=== PATIENT | female | born 1995 | race Hispanic/Latino ===

== ENCOUNTER 2019-11-28 01:52 | Emergency (ER) | payer BC, SELFPAY ==
[2019-11-28 02:02] VITALS: BP 153/84; PULSE 74; RESP 15; TEMP 37.2; O2SAT 97; BMI 37.2
--- NOTE | 2019-11-28 02:19 | ED.ANXIETY ---
HPI - Anxiety General Chief Complaint: Anxiety Stated Complaint: uneasy/anxiety/heart palpitations no pain Time Seen by Provider: 11/28/19 01:58 Source: patient Mode of arrival: Ambulatory Limitations: no limitations History of Present Illness HPI narrative: Patient is a 23-year-old female here for anxiety issues stating that she wants to ?get checked out ?to make sure everything is okay. She states that 2 days ago she drink some coffee and had orange juice late in the day. She states that evening she woke up with heartburn. She has had heartburn in the past but has been associated with her 2 prior pregnancies. She is not currently on any medications. She is not currently having the symptoms. She states since that time she has been having some anxiety issues and some palpitations. She does not have a specific reason why she is feeling this way. She states that she has had anxiety in the past. She started having it after the of her 1st child. No thoughts of harming herself or anyone else. She is not talk with the primary doctor about this as she does not have a primary provider. Time of evaluation patient states that she feels ?fine? is not having any anxiety. Related Data Allergies Allergy/AdvReac Type Severity Reaction Status Date / Time No Known Drug Allergies Allergy Verified 11/28/19 02:01 Review of Systems Constitutional Constitutional: Denies headache(s) ENT Ears, Nose, Mouth, and Throat: Denies headache(s) Cardiovascular Cardiovascular: Denies chest pain, Reports rapid heart rate and Denies dyspnea Comments: Palpitations Respiratory Respiratory: Denies dyspnea Gastrointestinal Gastrointestinal: Denies abdominal pain, Denies nausea and Denies vomiting Integumentary/Breasts Skin/Breast: Denies rash Neurologic Neurologic: Denies behavioral changes and Denies headache(s) Psychiatric Psychiatric: Reports anxiety, Denies behavioral changes, Denies homicidal ideation and Denies suicidal ideation Patient History Medical History Anxiety (Acute) Gastroesophageal reflux disease (Acute) Social History Smoking Status: Never smoker Smoking Status: Never smoker Substance Use Type: does not use Exam Initial Vital Signs Initial Vital Signs: Vital Signs Temperature 98.9 F 11/28/19 02:02 Pulse Rate 74 11/28/19 02:02 Respiratory Rate 15 08/28/20 02:02 Blood Pressure 153/84 H 11/28/19 02:02 Pulse Oximetry 97 11/28/19 02:02 Const General: cooperative and comfortable Limitations: mental status not altered HENMT Head: normal to inspection and normocephalic Resp Effort & Inspection: normal respiratory effort Auscultation: clear to auscultation bilaterally Cardio Rate: regular rate Rhythm: regular rhythm Skin Lesions: no lesions Rashes: no rashes Neuro General: patient alert, patient awake and patient oriented x3 Cognition: normal cognition Speech: speech normal Gait: normal gait Extrem General: normal to inspection and capillary refill normal Psych Appearance: grossly normal and well kempt Speech and Movement: not agitated and not restless Mood: not anxious and No angry Affect: normal affect Thought Process: normal Thought Content: suicidality Course Orders Ordered: ED Orders 11/28/19 02:00 EKG-12 Lead Stat Vital Signs Vital signs: Vital Signs - 8 hr 11/28/19 02:02 Temperature 98.9 F Pulse Rate 74 Respiratory Rate 15 Blood Pressure 153/84 H Pulse Oximetry 97 MDM - Anxiety ECG Data Attestation: I personally reviewed and interpreted this ECG as follows: Prior ECG tracings: not available for review Interpretation: Sinus rhythm Ventricular rate is 67 Sinus arrhythmia Normal QRS Normal QTC No ST T wave changes MDM Narrative Medical decision making narrative: Not suicidal. Suspect that her reflux disease was flared up by drinking a cough in the orange she is shortly before going to bed. We did discuss the use of [id number] antacids. Her EKG is unremarkable. She is currently not having any anxiety. We did discuss potentially starting her on a as needed medicine which she declined. She was given information for the health patient resource coordinator here at the [facility] to help establish a primary provider I feel we can hold on further workup for now. She was given return precautions. She expressed understanding and agreement. Discharge Plan Departure Patient Disposition: Home Clinical Impression: Anxiety, Heart palpitations Instructions: DI for Anxiety -- Adult Activity Restrictions/Additional Instructions: Recommend that you contact the health patient resource coordinator here at the [facility] at [phone]. This individual can help you establish a primary provider. Also recommend that you start taking an [id number] antacids such as Tums or Maalox. Return to the emergency department for any new or worsening symptoms
== END 2019-11-28 02:27 | disposition home or self-care (01) ==
PROVIDERS: Emergency Provider Emergency Medicine
DX: F41.9 Anxiety disorder, unspecified (principal); R00.2 Palpitations
CPT/HCPCS: 93005; 99281; 99283

== ENCOUNTER 2019-12-02 22:23 | Emergency (ER) | payer BC, SELFPAY ==
[2019-12-02 22:34] VITALS: BP 148/82; PULSE 68; RESP 20; TEMP 37.1; O2SAT 100
--- NOTE | 2019-12-02 22:42 | ED_ITS ---
HPI - General Adult General Chief complaint: Dizziness Stated complaint: lightheaded Time Seen by Provider: 12/02/19 22:25 Source: patient Mode of arrival: Ambulatory Limitations: no limitations History of Present Illness HPI narrative: 23-year-old female here for evaluation of lightheadedness. Patient states that the symptoms 1st started about actually 24 hours ago. She states it was a somewhat gradual onset did reach its maximal intensity within approximately 30 minutes. She described it as a unsteadiness. It was not a room spinning sensation. She had some nausea but no vomiting. No other associated symptoms to include chest pain or lightheadedness. She did not fall. She was able to go about her evening activities like getting her children ready for bed. She stated that she then went to sleep herself. When she woke up this morning she felt normal. Was normal throughout the day. And then this evening similar symptoms happened. Again gradual onset. No other associated symptoms. She stated that last night and tonight symptoms lasted less than 2 hours. The time of my evaluation patient was asymptomatic. I did evaluate her here in the emergency department a couple days ago for unrelated symptoms. She was able to schedule an appointment with her primary doctor purchase scheduled for later this month. She called them back today to see if they can move that appointment up and she is scheduled to see a nurse practitioner tomorrow. Related Data Allergies Allergy/AdvReac Type Severity Reaction Status Date / Time No Known Drug Allergies Allergy Verified 11/28/19 02:01 Review of Systems Constitutional Constitutional: Denies fever(s) and Denies headache(s) Eyes Eyes: Denies blurry vision and Denies change in vision ENT Ears, Nose, Mouth, and Throat: Denies vertigo, Reports dizziness, Denies headache(s), Denies sinus pain and Denies sore throat Cardiovascular Cardiovascular: Denies chest pain, Reports lightheadedness and Denies dyspnea Respiratory Respiratory: Denies cough and Denies dyspnea Gastrointestinal Gastrointestinal: Denies abdominal pain Genitourinary Genitourinary: Denies dysuria Genitourinary: Denies dysuria Musculoskeletal Musculoskeletal: Denies arthralgias and Denies myalgias Integumentary/Breasts Skin/Breast: Denies lesions and Denies rash Neurologic Neurologic: Denies behavioral changes, Denies vertigo, Reports dizziness and Denies headache(s) Psychiatric Psychiatric: Denies behavioral changes Hematologic/Lymphatic Hematologic/Lymphatic: Denies easy bleeding and Denies easy bruising Allergic/Immunologic Allergic/Immunologic: Denies urticaria Patient History Medical History Anxiety (Acute) Gastroesophageal reflux disease (Acute) Social History Smoking Status: Never smoker Smoking Status: Never smoker Substance Use Type: does not use Exam Initial Vital Signs Initial Vital Signs: Vital Signs Temperature 98.7 F 12/02/19 22:34 Pulse Rate 68 12/02/19 22:34 Respiratory Rate 20 12/02/19 22:34 Blood Pressure 148/82 H 12/02/19 22:34 Pulse Oximetry 100 12/02/19 22:34 Const General: cooperative and comfortable Limitations: mental status not altered HENMT Head: normal to inspection and normocephalic Resp Effort & Inspection: normal respiratory effort Auscultation: clear to auscultation bilaterally Cardio Rate: regular rate Rhythm: regular rhythm Skin General: no rashes or lesions noted Neuro General: patient alert, patient awake and patient oriented x3 Cognition: normal cognition Speech: speech normal Gait: normal gait Motor: muscle tone normal throughout Sensory Exam: no sensory deficits noted Extrem General: normal to inspection and capillary refill normal Psych Appearance: grossly normal and well kempt Scores GCS [place] coma scale eye opening: Spontaneous Elise coma scale verbal response: Orientated Elise coma scale motor response: Obey commands [place] coma scale total score: 15 Course Orders Ordered: ED Orders 12/02/19 22:50 Complete Blood Count AUTO DIFF Stat Comprehensive Metabolic Panel Stat Lipase Stat Test Serum,Qual Stat Thyroid Stimulating Hormone Stat Vital Signs Vital signs: Vital Signs - 8 hr 12/02/19 22:34 12/02/19 23:57 Temperature 98.7 F Pulse Rate 68 68 Respiratory Rate 20 16 Blood Pressure 148/82 H 150/76 H Pulse Oximetry 100 100 Medical Decision Making Lab Data Lab results reviewed: Yes I reviewed the patient's lab results. Result diagrams: 12/02/19 22:50 12/02/19 22:50 Labs: Lab Results 12/02/19 12/02/19 12/02/19 Range/Units 22:50 22:50 22:50 WBC 9.5 (4.5-11.0) X10^3/uL RBC 5.11 (4.0-5.2) X10^6/uL Hgb 13.0 (12.0-16.0) g/dL Hct 40.0 (36-46) % MCV 78.4 L (80-100) fL MCH 25.4 L (26-34) PG MCHC 32.4 (30-36) % RDW 13.8 (11.6-14.8) % Plt Count 312 (150-400) X10^3/uL Neut % (Auto) 71.2 (50-75) % Lymph % (Auto) 23.4 L (25-40) % [place] % (Auto) 4.4 (3-14) % Eos % (Auto) 0.3 L (2-4) % Baso % (Auto) 0.7 (0-2) % Neut # (Auto) 6800 (4506-0361) /uL Lymph # (Auto) 2200 (8125-6165) /uL [place] # (Auto) 400 (0-900) /uL Eos # (Auto) 0 (0-450) /uL Baso # (Auto) 100 (0-100) /uL Sodium 137 (137-145) mmol/L Potassium 4.0 (3.4-5.1) mmol/L Chloride 101 (98-107) mmol/L Carbon Dioxide 28 (22-32) mmol/L BUN 13 (7-17) mg/dL Creatinine 0.73 (0.52-1.04) mg/dL Estimated GFR > 60.0 (>60) mL/min BUN/Creatinine Ratio 17.8 (6-22) Glucose 110 H (70-100) mg/dL Calcium 9.3 (8.4-10.2) mg/dL Total Bilirubin 0.5 (0.2-1.3) mg/dL AST 21 (14-36) IU/L ALT 23 (<35) IU/L Alkaline Phosphatase 82 (38-126) U/L Total Protein 7.4 (6.3-8.2) g/dL Albumin 4.3 (3.5-5.0) g/dL Globulin 3.1 (1.7-4.1) g/dL Albumin/Globulin Ratio 1.4 (1.0-2.8) Lipase 29 (23-300) U/L TSH 0.414 L (0.47-4.68) uIU/mL Serum , Qual (Negative) 12/02/19 Range/Units 22:50 WBC (4.5-11.0) X10^3/uL RBC (4.0-5.2) X10^6/uL Hgb (12.0-16.0) g/dL Hct (36-46) % MCV (80-100) fL MCH (26-34) PG MCHC (30-36) % RDW (11.6-14.8) % Plt Count (150-400) X10^3/uL Neut % (Auto) (50-75) % Lymph % (Auto) (25-40) % [place] % (Auto) (3-14) % Eos % (Auto) (2-4) % Baso % (Auto) (0-2) % Neut # (Auto) (4309-3264) /uL Lymph # (Auto) (9229-7740) /uL [place] # (Auto) (0-900) /uL Eos # (Auto) (0-450) /uL Baso # (Auto) (0-100) /uL Sodium (137-145) mmol/L Potassium (3.4-5.1) mmol/L Chloride (98-107) mmol/L Carbon Dioxide (22-32) mmol/L BUN (7-17) mg/dL Creatinine (0.52-1.04) mg/dL Estimated GFR (>60) mL/min BUN/Creatinine Ratio (6-22) Glucose (70-100) mg/dL Calcium (8.4-10.2) mg/dL Total Bilirubin (0.2-1.3) mg/dL AST (14-36) IU/L ALT (<35) IU/L Alkaline Phosphatase (38-126) U/L Total Protein (6.3-8.2) g/dL Albumin (3.5-5.0) g/dL Globulin (1.7-4.1) g/dL Albumin/Globulin Ratio (1.0-2.8) Lipase (23-300) U/L TSH (0.47-4.68) uIU/mL Serum , Qual Negative (Negative) [facility] Narrative Medical decision making narrative: Patient is asymptomatic. Labs are relatively unremarkable. Low suspicion for CVA or TIA. Low suspicion for arrhythmia however did inform the patient that she should talk with her primary doctor about the indications for a Holter monitor. Patient is not hypoglycemic which she was concerned about. She was also concerned about anemia which is not the case with her labs. Provided reassurance the patient. I feel we can hold on further workup for now. Patient was given return precautions and follow-up instructions. She expressed understanding and agreed. Discharge Plan Departure Patient Disposition: Home Clinical Impression: Lightheadedness Discharge Date/Time: 12/02/19 23:57 Instructions: DI for Dizziness-Nonvertigo Activity Restrictions/Additional Instructions: Recommend that you keep all of your scheduled medical appointments. Continue all of your medications as directed. Return to the emergency department for any new or worsening symptoms
[2019-12-02 23:02] LABS: Add Manual Diff / Slide Review NO; Basophils Absolute Auto 100 /uL (0-100); Basophils Percent Auto 0.7 % (0-2); Eosinophils Absolute Auto 0 /uL (0-450); Eosinophils Percent Auto 0.3 % (2-4); Lymphocytes Absolute Auto 2200 /uL (1100-4500); Lymphocytes Percent Auto 23.4 % (25-40); Mean Corpuscular HGB Conc 32.4 % (30-36); Mean Corpuscular Hemoglobin 25.4 PG (26-34); Mean Corpuscular Volume 78.4 fL (80-100); Monocytes Absolute Auto 400 /uL (0-900); Monocytes Percent Auto 4.4 % (3-14); Neutrophils Absolute Auto 6800 /uL (1500-7000); Neutrophils Percent Auto 71.2 % (50-75); Platelet Count 312 X10^3/uL (150-400); Red Blood Cell Count 5.11 X10^6/uL (4.0-5.2); Red Cell Distribution Width 13.8 % (11.6-14.8); White Blood Cell Count 9.5 X10^3/uL (4.5-11.0)
[2019-12-02 23:19] LABS: Alanine Aminotransferase 23 IU/L (<35); Albumin 4.3 g/dL (3.5-5.0); Albumin Globulin Ratio 1.4 (1.0-2.8); Alkaline Phosphatase 82 U/L (38-126); Aspartate Aminotransferase 21 IU/L (14-36); BUN Creatinine Ratio 17.8 (6-22); Bilirubin Total 0.5 mg/dL (0.2-1.3); Blood Urea Nitrogen 13 mg/dL (7-17); Calcium 9.3 mg/dL (8.4-10.2); Carbon Dioxide 28 mmol/L (22-32); Chloride 101 mmol/L (98-107); Estimated Glomerular Filt Rate > 60.0 mL/min (>60); Globulin 3.1 g/dL (1.7-4.1); Glucose 110 mg/dL (70-100); HEMOLYSIS < 15 (0-50); Lipase 29 U/L (23-300); Sodium 137 mmol/L (137-145); Total Protein 7.4 g/dL (6.3-8.2)
--- NOTE | 2019-12-02 23:20 | PC.NURSE ---
Patient states approximately 1600 was running around with kids and got lightheaded. Denies LOC or being near syncope, I just felt dizzy. Patient reports symptoms now resolved. Denies chest pain or pain of any kind.
[2019-12-02 23:33] LABS: Pregnancy Test Serum,Qual Negative (Negative)
[2019-12-02 23:57] VITALS: BP 150/76; PULSE 68; RESP 16; O2SAT 100
[2019-12-03 00:06] LABS: Thyroid Stimulating Hormone 0.414 uIU/mL (0.47-4.68)
== END 2019-12-02 23:57 | disposition home or self-care (01) ==
PROVIDERS: Emergency Provider Emergency Medicine
DX: R42 Dizziness and giddiness (principal)
CPT/HCPCS: 36415; 80053; 83690; 84443; 84703; 85025; 99283

== ENCOUNTER → 2019-12-22 07:03 | Outpatient (CLI) | payer BC, SELFPAY ==
--- NOTE | 2019-12-22 07:19 | DI.ECHO.S_ITS ---
Echocardiogram Report + + :Name: JOSE REMY Study Date: 12/22/2019 Height: 63 in : :[facility] Weight: 210 lb : : Gender: Female BSA: 2.0 m2 : :: 1995 Age: 24 yrs BP: 140/78 mmHg: :Reason For Study: MURMUR : :Ordering Physician: LEEANNE, : :RAKESH PRADHAN Performed By: Aaliyah Patel : :Referring: RAKESH FALLON : + + Interpretation Summary The left ventricle is normal in size and wall thickness. The ejection fraction is estimated to be 60-65%. The right ventricle is normal in size and function. No significant valvular pathology seen. The IVC is of normal diameter and collapses greater than 50% with a sniff. This suggests a low right atrial pressure of 3 mm Hg. Procedure: A two-dimensional transthoracic echocardiogram with color flow and Doppler was performed. The study quality was technically adequate. There is no prior echocardiogram noted for this patient. The heart rate ranged between 48-67 bpm during the study. The patient was in normal sinus rhythm during the exam. Left Ventricle: The left ventricle is normal in size and wall thickness. There is no thrombus. The ejection fraction is estimated to be 60-65%. There are no focal wall motion abnormalities. Diastolic parameters suggest probable normal left ventricular diastolic function and normal filling pressures. Right Ventricle: The right ventricle is normal in size and function. Atria: The left atrium is mildly dilated. Right atrial size is normal. There is no Doppler evidence for an interatrial shunt. Mitral Valve: The mitral valve is normal in structure and function. There is trace mitral regurgitation. Aortic Valve: The aortic valve is trileaflet. The aortic valve opens well. There is no aortic valve stenosis. No aortic regurgitation is present. Tricuspid Valve: The tricuspid valve is normal in structure and function. Pulmonary artery pressures cannot be estimated because of the lack of a measurable TR jet velocity but the IVC suggests a CVP of around 3 mmHg. There is trace tricuspid regurgitation. Pulmonic Valve: The pulmonic valve leaflets are thin and pliable; valve motion is normal. There is no pulmonic valvular regurgitation. Great Vessels: The aortic root is normal size. The dimensions of the ascending aorta are normal. The IVC is of normal diameter and collapses greater than 50% with a sniff. This suggests a low right atrial pressure of 3 mm Hg. Pericardium/ Pleura There is no pericardial effusion. There is no pleural effusion. MMode/2D Measurements & Calculations LVIDd: 5.0 cm LVOT diam: 2.0 cm LVIDs: 3.1 cm Ao root diam: 2.8 cm FS: 37.4 % asc Aorta Diam: 2.9 cm EPSS: 0.57 cm Ao Arch Diam (Prox Trans): 2.7 cm IVSd: 0.90 cm LVPWd: 0.78 cm LV camarena. diameter/BSA (cm/m^2): 2.5 LV sys. diameter/BSA (cm/m^2): 1.6 LA A2 area: 20.5 cm2 RA long axis: 5.5 cm LA A4 area: 20.4 cm2 RA area: 20.0 cm2 LA length (vol): 5.2 cm RA vol: 62.5 ml LA vol: 67.6 ml RA : 31.6 ml/m2 LA vol index: 34.2 ml/m2 IVC diam: 0.97 cm RVD1 (basal): 3.8 cm TAPSE: 2.7 cm Doppler Measurements & Calculations Ao V2 max: 136.6 cm/sec LVOT Max Italo: 108.7 cm/sec Ao V2 mean: 86.3 cm/sec LV V1 max P.7 mmHg Ao max P.5 mmHg LV V1 VTI: 25.6 cm Ao mean P.5 mmHg EVELINE(I,D): 2.7 cm2 Ao V2 VTI: 30.9 cm EVELINE(V,D): 2.6 cm2 sev ratio: 0.83 EVELINE indexed to BSA (cm^2/m^2): 1.4 MV E max italo: 103.2 cm/sec PA V2 max: 74.0 cm/sec MV A max italo: 34.5 cm/sec PA V2 mean: 53.2 cm/sec MV E/A: 3.0 PA mean P.3 mmHg Med Peak E' Italo: 13.3 cm/sec PA pr(Accel): 5.4 mmHg E/E' med: 7.8 Lat Peak E' Italo: 16.5 cm/sec E/E' lat: 6.3 E/e' average: 7.0 MV dec time: 0.24 sec SV(LVOT): 84.0 ml Reading Physician:03:20 PM
[2019-12-22 09:39] LABS: Free T4, Direct Thyroxine 0.93 ng/dL (0.78-2.19)
[2019-12-22 09:53] LABS: Thyroid Stimulating Hormone 2.21 uIU/mL (0.47-4.68)
== END ==
PROVIDERS: PCP Family Medicine; Referring Provider Registered Nurse Diabetes Educator; Visit Provider Registered Nurse Diabetes Educator
DX: R01.1 Cardiac murmur, unspecified (principal); R00.2 Palpitations; R42 Dizziness and giddiness
CPT/HCPCS: 0296T; 36415; 84439; 84443; 84481; 93306

== ENCOUNTER → 2019-12-22 08:15 | Outpatient (CLI) | payer BC, SELFPAY ==
--- NOTE | 2020-01-08 10:16 | PM.CARDMON.1 ---
Facility Practice Specialist Report Referral & Results Date Patient Seen: 12/22/19 Requesting provider: Eugene Del Rosario Indication: Dizziness Duration of monitoring (days): 6 Diary information: There was 1 patient triggered event associated with sinus rhythm Data: Minimum heart rate identified was 38 beats per minute at 04:48 on 12/23/2019 Maximum overall heart rate was 153 beats per minute at 19:01 on 12/25/2019 Less than 1% of identified beats or either ventricular supraventricular ectopic in origin. Patient did have a 2.2nd run of ventricular bigeminy Impression: Essentially normal 5+ day cardiac rehabilitation specialist showing rare ventricular supraventricular events as above Clinical correlation suggested
== END ==
LOC: CAR 08:16
PROVIDERS: PCP Family Medicine; Referring Provider Registered Nurse Diabetes Educator; Visit Provider Registered Nurse Diabetes Educator
DX: R42 Dizziness and giddiness (principal)
CPT/HCPCS: 0296T; 0298T

== ENCOUNTER → 2020-02-06 09:29 | Outpatient (CLI) | payer BC, SELFPAY | PROVIDERS: PCP Family Medicine; Visit Provider Physician Assistant | DX: R30.0 Dysuria (principal) | CPT/HCPCS: 87077; 87086; 87186 ==

== ENCOUNTER 2020-11-20 19:25 | Emergency (ER) | payer BC, SELFPAY ==
[2020-11-20] VITALS (8 sets, daily range): BP systolic 148–163; BP diastolic 78–90; PULSE 61–76; RESP 18; TEMP 36.9; O2SAT 98–100; BMI 38.0
--- NOTE | 2020-11-20 20:27 | DI.US.S_ITS ---
PROCEDURE: US OB <= 14 WEEKS FETUS INDICATIONS: BLEEDING OUTSIDE/PRIOR DATING DATA: Last menstrual period (LMP): Unknown. LMP-based estimated date of delivery (JEREMIAS): Not applicable. First dating scan (date and location): 11/16/2020, [facility]. Estimated date of delivery (JEREMIAS) from first dating scan: 06/17/2021. TECHNIQUE: Real-time scanning was performed of the fetus and maternal pelvic organs, with image documentation. Endovaginal scanning was also performed to better visualize the fetus and maternal ovaries. COMPARISON: [facility], US, US OB <= 14 WEEKS FETUS, 11/16/2020, 8:28. FINDINGS: Embryo: A single live intrauterine is seen. The measured heart rate is 182 beats per minute. The crown-rump length measures 3.4 cm, corresponding to an estimated gestational age of 10 weeks 2 days. It is too early for detailed anatomic assessment. By visual inspection, the amount of amniotic fluid is within normal limits. Two areas of apparent perigestational hemorrhage can be seen, which measure 2.3 x 3.5 x 0.9 cm posterior to the gestational sac and 4.4 x 4.3 x 1.4 cm inferior to the gestational sac. Measurement variability in dating: +/- 4 weeks by LMP, +/- 7 days by mean sac diameter (use before 6 weeks gestation if crown-rump length not able to be measured), +/- 5 days by crown-rump length (up to 8 weeks 6 days gestation), +/- 7 days by crown-rump length (up to 13 weeks 6 days gestation). Maternal organs: There is a complex fluid collection seen within the right adnexal region adjacent to the ovary, which demonstrates a fishnet type echotexture. Increased vascularity can be seen within the left adnexal region. There is a simple appearing cyst that measures up to 2.9 cm. A small amount free fluid can be seen within the left adnexal region. IMPRESSION: A single live intrauterine is seen. Two areas subchorionic hemorrhage can be seen. On the right, there is likely blood products seen, potentially related to a hemorrhagic cyst. Heterotopic is possible, yet considered to be less likely. Close clinical followup, with serial beta-hCG and serial ultrasound are recommended, if clinically appropriate. A simple appearing left adnexal cyst is also seen. Note: No significant discrepancy from the preliminary report. Dictated by: Shan Navas M.D. on 11/21/2020 at 7:21 Approved by: Shan Navas M.D. on 11/21/2020 at 7:28
[2020-11-20 21:05] LABS: Add Manual Diff / Slide Review NO; Basophils Absolute Auto 100 /uL (0-100); Basophils Percent Auto 1.3 % (0-2); Eosinophils Absolute Auto 300 /uL (0-450); Hematocrit 40.3 % (36-46); Hemoglobin 13.4 g/dL (12.0-16.0); Lymphocytes Absolute Auto 2000 /uL (1100-4500); Lymphocytes Percent Auto 23.7 % (25-40); Mean Corpuscular HGB Conc 33.2 % (30-36); Mean Corpuscular Hemoglobin 26.1 PG (26-34); Mean Corpuscular Volume 78.7 fL (80-100); Monocytes Absolute Auto 500 /uL (0-900); Monocytes Percent Auto 5.2 % (3-14); Neutrophils Absolute Auto 5700 /uL (1500-7000); Neutrophils Percent Auto 66.8 % (50-75); Platelet Count 239 X10^3/uL (150-400); Red Blood Cell Count 5.13 X10^6/uL (4.0-5.2); Red Cell Distribution Width 14.1 % (11.6-14.8); White Blood Cell Count 8.6 X10^3/uL (4.5-11.0)
--- NOTE | 2020-11-20 21:06 | ED_ITS ---
HPI - General Chief complaint: Vaginal Bleeding Stated complaint: bleeding, 12 wks phys ref. cramping Time Seen by Provider: 11/20/20 20:27 Source: patient Mode of arrival: Ambulatory Limitations: no limitations History of Present Illness HPI Narrative: Patient is a 24-year-old female who is a presenting with vaginal bleeding at 11 weeks. She states she had some pretty bad cramping yesterday a today the cramping was not as bad however she had of days the restroom and there was a blood clot and a large amount of blood. She went to the bathroom here in the ED accompanied to have some bleeding. She has been nauseous throughout the so she does have Zofran she has taken and a couple days. No issues with previous pregnancies Related Data Home Medications Medication Instructions Recorded Confirmed prenthiago.vits,keli,ssd-idre-ouypz 1 tab PO DAILY 11/04/20 11/16/20 Previous Rx's Medication Instructions Recorded hydroxyzine HCl 10 mg tablet 10 mg PO TID PRN #30 tab 01/22/20 docusate sodium 100 mg tablet 100 mg PO BID PRN #180 tab 11/04/20 (Stool Softener) ondansetron 4 mg disintegrating 4 mg PO Q6H PRN #20 tab 11/04/20 tablet Allergies Allergy/AdvReac Type Severity Reaction Status Date / Time No Known Drug Allergies Allergy Verified 11/20/20 19:39 Review of Systems Review of Systems Narrative: GENERAL: Denies chills, fatigue, malaise, fever, sweats, travel HEENT: Denies sinus pain, ear pain, sore throat, difficulty swallowing, neck pain RESPIRATORY: Denies dyspnea, cough, wheezing, hemoptysis, sputum. CARDIOVASCULAR: Denies chest pain, palpitations, orthopnea, edema GASTROINTESTINAL: See HPI COMMERCIAL LENDING RELATIONSHIP MANAGER: Vaginal bleeding : Denies dysuria, frequency, incontinence, hematuria, urinary retention, flank pain. MUSCULOSKELETAL: Denies weakness, joint pain, or bony pain SKIN: No rash, no erythema, no pruritus NEUROLOGIC: Denies weakness, dizziness, headache, numbness, change in speech, confusion PSYCHIATRIC: No concerning psychosocial issues. 12 point review of systems is negative except for those stated above and HPI Exam Initial Vital Signs Initial Vital Signs: Vital Signs Pulse Rate 68 11/20/20 19:37 Pulse Oximetry 99 11/20/20 19:37 GENERAL: Alert well-appearing 24-year-old female and in no acute] distress. HEENT: Head atraumatic,EOMI, pupils reactive, face symmetric, [moist] mucous membranes CARDIOVASCULAR: Regular rate and rhythm without murmurs, rubs or gallops. RESPIRATORY: Breath sounds equal bilaterally, no wheezes rales or rhonchi. ABDOMEN: Soft, nontender. Normoactive bowel sounds all 4 quadrants. No guarding or rebound. EXTREMITIES: Normal range of motion, no clubbing or edema. Neurovascularly intact NEUROLOGICAL: Alert and oriented x4.Normal gait and speech. SKIN: Warm, dry, no laceration, no petechiae, no rashes or lesions. Course Orders Ordered: ED Orders 11/20/20 20:27 OB <= 14 weeks fetus Stat 11/20/20 20:42 Urine Culture Stat Urine Microscopic Stat 11/20/20 20:54 ABO RH Type Stat Complete Blood Count AUTO DIFF Stat Comprehensive Metabolic Panel Stat HCG Quantitative /Beta subunit Stat Vital Signs Vital signs: Vital Signs - 8 hr 11/20/20 19:37 11/20/20 19:39 11/20/20 20:00 Temperature 98.5 F Pulse Rate 68 76 63 Respiratory Rate 18 Blood Pressure 148/78 H Pulse Oximetry 99 98 99 11/20/20 20:30 11/20/20 20:48 11/20/20 21:00 Temperature Pulse Rate 61 71 66 Respiratory Rate Blood Pressure 152/86 H 151/90 H Pulse Oximetry 99 100 99 MDM - OB/Uterine Contractions Lab Data Result diagrams: 11/20/20 20:54 11/20/20 20:54 Labs: Lab Results 11/20/20 11/20/20 11/20/20 Range/Units 20:42 20:54 20:54 WBC 8.6 (4.5-11.0) X10^3/uL RBC 5.13 (4.0-5.2) X10^6/uL Hgb 13.4 (12.0-16.0) g/dL Hct 40.3 (36-46) % MCV 78.7 L (80-100) fL MCH 26.1 (26-34) PG MCHC 33.2 (30-36) % RDW 14.1 (11.6-14.8) % Plt Count 239 (150-400) X10^3/uL Neut % (Auto) 66.8 (50-75) % Lymph % (Auto) 23.7 L (25-40) % Shannon % (Auto) 5.2 (3-14) % Eos % (Auto) 3.0 (2-4) % Baso % (Auto) 1.3 (0-2) % Neut # (Auto) 5700 (9944-2870) /uL Lymph # (Auto) 2000 (0137-4321) /uL Shannon # (Auto) 500 (0-900) /uL Eos # (Auto) 300 (0-450) /uL Baso # (Auto) 100 (0-100) /uL Sodium 135 L (137-145) mmol/L Potassium 3.9 (3.4-5.1) mmol/L Chloride 103 (98-107) mmol/L Carbon Dioxide 27 (22-32) mmol/L BUN 13 (7-17) mg/dL Creatinine 0.86 (0.52-1.04) mg/dL Estimated GFR > 60.0 (>60) mL/min BUN/Creatinine Ratio 15.1 (6-22) Glucose 95 (70-100) mg/dL Calcium 9.2 (8.4-10.2) mg/dL Total Bilirubin 0.2 (0.2-1.3) mg/dL AST 19 (14-36) IU/L ALT 16 (<35) IU/L Alkaline Phosphatase 61 (38-126) U/L Total Protein 7.0 (6.3-8.2) g/dL Albumin 4.0 (3.5-5.0) g/dL Globulin 3.0 (1.7-4.1) g/dL Albumin/Globulin Ratio 1.3 (1.0-2.8) HCG, Quant 98945 mIU/mL Urine RBC >100/hpf H (0-5/HPF) Urine WBC 10-30/hpf H (0-5/HPF) Ur Squamous Epith Cells 1-5 /hpf (0-5/HPF) Ur Transition Epith Cell 1-5/hpf (0-5/HPF) Urine Bacteria Moderate (10-30) H (None) Ur Culture Indicated? Specimen cultured Blood Type 11/20/20 Range/Units 20:54 WBC (4.5-11.0) X10^3/uL RBC (4.0-5.2) X10^6/uL Hgb (12.0-16.0) g/dL Hct (36-46) % MCV (80-100) fL MCH (26-34) PG MCHC (30-36) % RDW (11.6-14.8) % Plt Count (150-400) X10^3/uL Neut % (Auto) (50-75) % Lymph % (Auto) (25-40) % Shannon % (Auto) (3-14) % Eos % (Auto) (2-4) % Baso % (Auto) (0-2) % Neut # (Auto) (7269-8482) /uL Lymph # (Auto) (7577-2786) /uL Shannon # (Auto) (0-900) /uL Eos # (Auto) (0-450) /uL Baso # (Auto) (0-100) /uL Sodium (137-145) mmol/L Potassium (3.4-5.1) mmol/L Chloride (98-107) mmol/L Carbon Dioxide (22-32) mmol/L BUN (7-17) mg/dL Creatinine (0.52-1.04) mg/dL Estimated GFR (>60) mL/min BUN/Creatinine Ratio (6-22) Glucose (70-100) mg/dL Calcium (8.4-10.2) mg/dL Total Bilirubin (0.2-1.3) mg/dL AST (14-36) IU/L ALT (<35) IU/L Alkaline Phosphatase (38-126) U/L Total Protein (6.3-8.2) g/dL Albumin (3.5-5.0) g/dL Globulin (1.7-4.1) g/dL Albumin/Globulin Ratio (1.0-2.8) HCG, Quant mIU/mL Urine RBC (0-5/HPF) Urine WBC (0-5/HPF) Ur Squamous Epith Cells (0-5/HPF) Ur Transition Epith Cell (0-5/HPF) Urine Bacteria (None) Ur Culture Indicated? Blood Type O Positive Urine Dip Bedside Urine Glucose Negative Bedside Urine Bilirubin - Negative Bedside Urine Ketone - Negative Urine Specific [place] 1.020 Bedside Urine Occult Blood +++ Bedside Urine pH 6.5 Bedside Urine Protein - Negative Bedside Urine Urobilinogen - Negative Bedside Urine Nitrite - Negative Bedside Urine Leukocytes - Negative Esterase Imaging Data US - OB: Radiologist's Impression: Preliminary report: 1. A single live intrauterine with crown-rump length measuring 3.4 cm consistent with gestational age of 10 weeks and 2 days. 2. 2 distinct hypoechoic regions adjacent to the gestational sac measuring 2.3 x 3.5 x 0.9 cm and 4.4 x 4.3 x 1.9 cm these findings are most consistent with regions of subchorionic hemorrhage. Given size recommended close interval follow-up to ensure resolution with serial beta-hCG evaluations. 3. Large anechoic cyst contained within left ovary measuring 2.9 x 3.5 x 2.0 cm. Complex fluid likely blood products contained within right adnexa MDM Narrative Medical decision making narrative: Patient is hemodynamically stable. She is Opositive no indication for RhoGAM at this time. She has had to have 2 areas of subchorionic hemorrhage, but good heart tone. Discussed with her pelvic rest close follow-up with Ob. All questions have been addressed. Patient is found have bacteria in her urine along with multiple epithelial cells. She has no leukocytes or nitrates in her urine. At this time will wait for culture before treating with antibiotics. Discharge Plan Departure Patient Disposition: Home Clinical Impression: Subchorionic hemorrhage in first trimester, Miscarriage, threatened, early p regnancy Instructions: DI for Vaginal Bleeding During Activity Restrictions/Additional Instructions: At this time baby does look healthy and appears well. You have 2 areas of bleeding around baby that should stop. At this time recommend pelvic rest, nothing in or out of the vagina. Please follow-up closely with your OB, call to schedule appointment in the next 2-3 days. Return to the emergency department if you should have increasing pain, large amounts of bleeding going through more than 1 or 2 pads or any new or worsening symptoms. Prescriptions: No Action hydroxyzine HCl 10 mg tablet 10 mg PO TID PRN (Reason: anxiety) Qty: 30 RF: 0 prenat.vits,keli,svo-japm-qgjll Tablet 1 tab PO DAILY RF: 0 ondansetron 4 mg tablet,disintegrating 4 mg PO Q6H PRN (Reason: nausea and vomiting) Qty: 20 RF: 2 docusate sodium [Stool Softener] 100 mg tablet 100 mg PO BID PRN (Reason: constipation) Qty: 180 RF: 2 Referrals: Adwoa Kraft MD [Physician] - Ji Chou DO [Primary Care Provider] -
[2020-11-20 21:23] LABS: Alanine Aminotransferase 16 IU/L (<35); Albumin Globulin Ratio 1.3 (1.0-2.8); Alkaline Phosphatase 61 U/L (38-126); Aspartate Aminotransferase 19 IU/L (14-36); BUN Creatinine Ratio 15.1 (6-22); Bilirubin Total 0.2 mg/dL (0.2-1.3); Blood Urea Nitrogen 13 mg/dL (7-17); Calcium 9.2 mg/dL (8.4-10.2); Carbon Dioxide 27 mmol/L (22-32); Chloride 103 mmol/L (98-107); Estimated Glomerular Filt Rate > 60.0 mL/min (>60); Glucose 95 mg/dL (70-100); HEMOLYSIS < 15 (0-50); Potassium 3.9 mmol/L (3.4-5.1); Sodium 135 mmol/L (137-145)
[2020-11-20 21:28] LABS: Bacteria Urine Moderate (10-30); Culture Indicated Urine Specimen Cultured; RBC Urine >100/HPF (0-5/HPF); Squamous Epithelial Cell Urine 1-5 /HPF (0-5/HPF); Transitional Epi Cells Urine 1-5/HPF (0-5/HPF); WBC Urine 10-30/HPF (0-5/HPF)
[2020-11-20 22:03] LABS: HCG Quantitative /Beta subunit 37856 mIU/mL
== END 2020-11-20 23:41 | disposition home or self-care (01) ==
PROVIDERS: Emergency Provider Emergency Medicine; PCP Family Medicine
DX: O41.8X10 Other specified disorders of amniotic fluid and membranes, first trimester, not applicable or unspecified (principal); O20.0 Threatened abortion; Z3A.11 11 weeks gestation of pregnancy
CPT/HCPCS: 36415; 76801; 76817; 80053; 81003; 81015; 84702; 85025; 86900; 86901; 87086; 99284

== ENCOUNTER → 2020-11-22 17:29 | Outpatient (CLI) | payer BC, SELFPAY ==
[2020-11-22 18:59] LABS: HCG Quantitative /Beta subunit 34569 mIU/mL
== END ==
PROVIDERS: PCP Family Medicine; Referring Provider Specialist; Visit Provider Specialist
DX: O20.0 Threatened abortion (principal); O41.8X10 Other specified disorders of amniotic fluid and membranes, first trimester, not applicable or unspecified; O46.8X1 Other antepartum hemorrhage, first trimester
CPT/HCPCS: 36415; 84702

== ENCOUNTER → 2020-12-01 12:18 | Outpatient (CLI) | payer BC, SELFPAY ==
[2020-12-01 14:11] LABS: Thyroid Stimulating Hormone 0.621 uIU/mL (0.47-4.68)
[2020-12-02 10:12] LABS: HIV 1 & 2 Ab/Ag 4th Gen Combo NEGATIVE (NEGATIVE); Hep C Virus Ab w/Reflex Quant NEGATIVE s/c (NEGATIVE)
[2020-12-02 10:45] LABS: Varicella IgG Antibody 1165 index (Immune >165)
== END ==
PROVIDERS: PCP Family Medicine; Referring Provider Specialist; Visit Provider Specialist
DX: Z34.81 Encounter for supervision of other normal pregnancy, first trimester (principal); Z36.0 Encounter for antenatal screening for chromosomal anomalies
CPT/HCPCS: 36415; 81420; 84443; 86787; 86803; 87389

== ENCOUNTER → 2021-01-05 14:55 | Outpatient (CLI) | payer BC, SELFPAY ==
[2021-01-07 18:36] LABS: AFP Value 19.6 ng/mL (.); Gest Age on Col Date 17.4 weeks (.); Gestational Age Ultrasound (.); Insulin Dep Diabetes No (.); OSBR Risk 1IN 10000 (.); Results Report (.); Test Results *Screen Negative* (.)
== END ==
PROVIDERS: PCP Family Medicine; Referring Provider Specialist; Visit Provider Specialist
DX: Z34.82 Encounter for supervision of other normal pregnancy, second trimester (principal); R31.9 Hematuria, unspecified; Z3A.17 17 weeks gestation of pregnancy
CPT/HCPCS: 36415; 82105; 87086

== ENCOUNTER → 2021-01-25 13:58 | Outpatient (CLI) | payer BC, SELFPAY ==
--- NOTE | 2021-01-25 13:58 | DI.US.S_ITS ---
PROCEDURE: US OB >= 14 WEEKS FETUS INDICATIONS: ANATOMY OUTSIDE/PRIOR DATING DATA: First dating scan (date and location): 11/16/2020 . Estimated date of delivery (JEREMIAS) from first dating scan: 06/17/2021 . TECHNIQUE: Real-time scanning was performed of the fetus, with image documentation and biometric measurements. Endovaginal scanning: No COMPARISON: [facility], , OB >= 14 WEEKS FETUS, 12/01/2020, 12:04. FINDINGS: General: A single living intrauterine gestation is present. Presentation: Breech. Placenta: Placental position is posterior , without previa. Amniotic fluid index: 16.5 cm, normal range is 5-24 cm. heart rate: 149 beats per minute. Maternal cervical canal: 4.4 cm long. Normal lower limit is 2.5 cm. biometrics: Biparietal diameter: 20 weeks 4 days Head circumference: 20 weeks 3 days Abdominal circumference: 21 weeks 5 days Femur length: 20 weeks 1 day Estimated gestational age from initial scan: 19 weeks 4 days Composite gestational age from present scan: 20 weeks 5 days Estimated weight and percentile: 380 g; 98th percentile. Measurement variability for biometric dating: +/- 7 days from 14 weeks to 15 weeks 6 days gestation, +/- 10 days from 16 weeks to 21 weeks 6 days gestation, +/- 2 weeks from 22 weeks to 27 weeks 6 days gestation, +/- 3 weeks for 28 weeks gestation or later. weight reference: 4500 g or EFW >90/95% is considered macrosomia or large for gestational age. EFW <10% is small for gestational age. EFW 5% or less is considered intra-uterine growth restriction. Anatomic survey: Neuro: Ventricles are non-dilated at less than 10 mm. Cisterna magna is normal at 3-11 mm. Cerebellum is normal in size and morphology. Nuchal skin fold: Normal at less than 6 mm between 14-21 weeks gestational age. Face: Nose and lips, facial profile are normal. Spine: No evidence for spina bifida. Heart: 4-chambered heart is present, with normal ventricular outflow tracts. Diaphragm: Diaphragm is intact. Stomach: Left-sided stomach is present. Kidneys: No hydronephrosis. Normal is less than 5 mm in 2nd trimester, less than 7 mm in 3rd trimester. Cord: 3-vessel cord has orthotopic insertion. Bladder: Normal in size. Extremities: All 4 extremities identified. IMPRESSION: 1. Single living IUP redemonstrated and interval growth is greater than expected with estimated weight at the 98th percentile for age. 2. Normal anatomic survey. Dictated by: Alexi Lim [facility] Interpreted: Radha Fernandes MD on 01/25/2021 at 15:05 Transcribed by: GARRISON on 01/25/2021 at 15:07 Approved by: Radha Fernandes M.D. on 01/25/2021 at 16:15
== END ==
PROVIDERS: PCP Family Medicine; Referring Provider Specialist; Visit Provider Specialist
DX: Z34.82 Encounter for supervision of other normal pregnancy, second trimester (principal); Z3A.20 20 weeks gestation of pregnancy
CPT/HCPCS: 76811

== ENCOUNTER → 2021-03-18 08:37 | Outpatient (CLI) | payer BC, SELFPAY ==
[2021-03-18 10:39] LABS: Hematocrit 33.6 % (36-46); Hemoglobin 11.3 g/dL (12.0-16.0)
[2021-03-18 11:44] LABS: GTT (PREG) 1 Hour PP 50gm Dose 176 mg/dL (76-139)
== END ==
PROVIDERS: PCP Family Medicine; Referring Provider Specialist; Visit Provider Specialist
DX: Z34.82 Encounter for supervision of other normal pregnancy, second trimester (principal); Z3A.26 26 weeks gestation of pregnancy
CPT/HCPCS: 36415; 82950; 85014; 85018

== ENCOUNTER → 2021-04-18 08:07 | Outpatient (CLI) | payer BC, SELFPAY ==
[2021-04-18 09:53] LABS: Glucose Fasting Gestational 78 mg/dL (76-95)
[2021-04-18 11:51] LABS: Glucose Tol Interp,Gestational INTERPRETATION
[2021-04-18 12:54] LABS: Glucose 1 Hour Gest 120 mg/dL (76-180)
[2021-04-18 13:01] LABS: Glucose 2 Hour Gest 101 mg/dL (76-155)
[2021-04-18 13:33] LABS: Glucose 3 Hour Gest 109 mg/dL (76-140)
== END ==
PROVIDERS: PCP Family Medicine; Referring Provider Specialist; Visit Provider Specialist
DX: O99.810 Abnormal glucose complicating pregnancy (principal)
CPT/HCPCS: 36415; 82951; 82952

== ENCOUNTER → 2021-05-17 11:56 | Outpatient (CLI) | payer BC, SELFPAY ==
[2021-05-18 17:00] LABS: Strep Grp B PCR NEG for Grp B Strep
== END ==
PROVIDERS: PCP Family Medicine; Visit Provider Specialist
DX: Z36.85 Encounter for antenatal screening for Streptococcus B (principal); Z3A.36 36 weeks gestation of pregnancy
CPT/HCPCS: 87086; 87653

== ENCOUNTER 2021-06-07 09:14 | Observation (INO) | payer BC, SELFPAY ==
[2021-06-07] MEDS: LACTATED RINGERS 1,000 ML 100 ML IV (10:53)
[2021-06-07 11:09] LABS: Add Manual Diff / Slide Review NO; Basophils Absolute Auto 0 /uL (0-100); Basophils Percent Auto 0.7 % (0-2); Eosinophils Absolute Auto 100 /uL (0-450); Hematocrit 34.9 % (36-46); Hemoglobin 11.2 g/dL (12.0-16.0); Lymphocytes Absolute Auto 1700 /uL (1100-4500); Mean Corpuscular Hemoglobin 23.2 PG (26-34); Mean Corpuscular Volume 72.7 fL (80-100); Monocytes Absolute Auto 500 /uL (0-900); Monocytes Percent Auto 7.1 % (3-14); Neutrophils Absolute Auto 4200 /uL (1500-7000); Neutrophils Percent Auto 65.2 % (50-75); Platelet Count 224 X10^3/uL (150-400); Red Cell Distribution Width 15.5 % (11.6-14.8); White Blood Cell Count 6.4 X10^3/uL (4.5-11.0)
[2021-06-07 11:22] LABS: Alanine Aminotransferase 19 IU/L (<35); Albumin 3.5 g/dL (3.5-5.0); Alkaline Phosphatase 174 U/L (38-126); Aspartate Aminotransferase 26 IU/L (14-36); BUN Creatinine Ratio 18.8 (6-22); Bilirubin Total 0.4 mg/dL (0.2-1.3); Blood Urea Nitrogen 12 mg/dL (7-17); Calcium 8.4 mg/dL (8.4-10.2); Carbon Dioxide 23 mmol/L (22-32); Chloride 106 mmol/L (98-107); Estimated Glomerular Filt Rate > 60.0 mL/min (>60); Globulin 3.5 g/dL (1.7-4.1); Glucose 93 mg/dL (70-100); HEMOLYSIS < 15 (0-50); Potassium 3.9 mmol/L (3.4-5.1); Sodium 133 mmol/L (137-145); Uric Acid 4.2 mg/dL (2.5-6.2)
[2021-06-07 11:38] LABS: Creatinine Urine Random 211.4 mg/dL; Protein (Total) Urine Random 24 mg/dL (0-12); Protein Creatinine Ratio Urine 0.11 GRAM/24H
--- NOTE | 2021-06-07 13:17 | PM.OBTRLD ---
Visit Information Visit Information Date of evaluation: 06/07/21 Primary OB Provider: Adwoa Kraft On-call OB Provider: Meño Bowens Reason for Evaluation: Yes non-stress test and Yes other Comments/Additional reasons for admission: Patient is 25 yo JEREMIAS 06/12/2021 @ 39+2 weeks EGA sent to [facility] for observation due to labile BP's in office and 1+ dip UA for protein. Patient wishes to be induced due to persistent maternal discomfort Vital Signs Vital Signs: BP's per OBIX; All BP's in the normal or mild HTN range [facility] Medical History (Updated 06/07/21 @ 09:21 by Meño Bowens MD) Anxiety (~11/2019) Elevated blood pressure reading in office with white coat syndrome, without diagnosis of hypertension (~2015) Gastroesophageal reflux disease (~11/2019) Generalized anxiety disorder with panic attacks (~02/2020) anxiety (~2015) Systolic murmur (~01/2020) UTI (urinary tract infection) (~02/2020) Surgical History (Updated 11/04/20 @ 12:27 by Kellen Yee RN) History of removal of skin mole Family History (Updated 11/04/20 @ 12:32 by Kellen Yee RN) Father Hyperlipidemia Mother Hyperlipidemia Hypertension Grandmother Cancer Grandfather Cancer Grandmother No problems noted. Grandfather No problems noted. Social History marital status: number of children: 2 household members: spouse, family ([id number], and her brother. ) and children lives independently: Yes caregiver/support person: No housing: house (3 level [facility]. 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 ) current occupational exposures/hazards: No kimberley/jewish: Religion special kimberley needs: No seatbelt use: always helmet use: Yes working smoke detector in home: Yes fire extinguisher in home: Yes carbon monox detector in home: Yes firearms in home: No do you feel safe at home: Yes Smoking Status: Never smoker second hand exposure: No alcohol intake: never substance use type: does not use during the past year weight has: remained stable well-balanced diet: daily or most days daily servings fruits/ve-4 (2 per day now, as she is nauseous. Usually more vegetables.) caffeine: No Type(s) of exercise: walking and normal ROM and activity frequency: daily duration: 30-45 minutes/day Review of Systems Review of Systems Narrative: Problem-specific ROS positives included in HPI. Exam Const General: cooperative and No acute distress Nutritional Appearance: overweight Orientation: alert and oriented x3 HENMT Head: normal to inspection Face and sinus: face symmetric Eyes General: appearance normal, both eyes and all related structures Neck Neck: normal visual inspection Resp Effort & Inspection: normal respiratory effort and able to speak in complete sentences Manual OB Exam: dilated 2, effaced 75%, station high and other (Soft, intermediate position) Uterus Location (Fundal Height): 40 Presentation: vertex Skin General: no rashes or lesions noted Extrem General: edema (Trace) Psych Appearance: grossly normal Mental Status: mental status grossly normal Speech and Movement: speech and movement normal Mood: congruent mood Affect: normal affect Attitude: cooperative Thought Process: normal Thought Content: normal Judgment: judgment good Objective Labs Result Diagrams: 06/07/21 Unknown 06/07/21 Unknown Labs: Laboratory Results - last 24 hr 06/07/21 06/07/21 06/07/21 Unknown Unknown Unknown WBC 6.4 RBC 4.80 Hgb 11.2 L Hct 34.9 L MCV 72.7 L MCH 23.2 L MCHC 32.0 RDW 15.5 H Plt Count 224 Neut % (Auto) 65.2 Lymph % (Auto) 26.0 [place] % (Auto) 7.1 Eos % (Auto) 1.0 L Baso % (Auto) 0.7 Neut # (Auto) 4200 Lymph # (Auto) 1700 [place] # (Auto) 500 Eos # (Auto) 100 Baso # (Auto) 0 Sodium 133 L Potassium 3.9 Chloride 106 Carbon Dioxide 23 BUN 12 Creatinine 0.64 Estimated GFR > 60.0 BUN/Creatinine Ratio 18.8 Glucose 93 Uric Acid 4.2 Calcium 8.4 Total Bilirubin 0.4 AST 26 ALT 19 Alkaline Phosphatase 174 H Total Protein 7.0 Albumin 3.5 Globulin 3.5 Albumin/Globulin Ratio 1.0 U Random Total Protein 24 H Urine Creatinine 211.4 Protein/Creatinin Ratio 0.11 Evaluation Evaluation Baseline heart rate: 140 Variability: Average (6-10) monitor accelerations: Present Monitor Decelerations: Absent Category of Tracing: Reactive Status: Category l Cervical dilation (cm): 2 Cervical effacement (%): 75 station: -4 Diagnosis, Plan/Disposition Plan/Disposition Plan: ASSESSMENT 1. Intrauterine gestation, manuel, vertex, 39+2 weeks EGA 2. Gestational hypertension w/o severe features 3. Maternal discomfort, third trimester PLAN 1. Options discussed and the patient would like to be induced as soon as feasible 2. Will admit this evening for cervical ripening and initiation of pitocin AM 06/08/2021 if cervix is more favorable at that time. OB Disposition: home
== END 2021-06-07 13:18 | disposition home or self-care (01) ==
PROVIDERS: Admitting Provider Obstetrics & Gynecology; PCP Family Medicine; Referring Provider Family Medicine; Visit Provider Family Medicine
DX: O13.3 Gestational [pregnancy-induced] hypertension without significant proteinuria, third trimester (principal); O26.893 Other specified pregnancy related conditions, third trimester; Z3A.39 39 weeks gestation of pregnancy
CPT/HCPCS: 36415; 59025; 59050; 80053; 82570; 84156; 84550; 85025; 96360; G0378; G0379

== ENCOUNTER 2021-06-08 07:09 | Inpatient (IN) | payer BC, SELFPAY ==
--- NOTE | 2021-06-08 08:08 | PM.OBHP.1 ---
OB HPI Date/Time Date of admission: 06/08/21 Date Patient Seen: 06/08/21 Time Patient Seen: 07:45 History of Present Condition Chief complaint: LABOR : 3 Para: 2 Estimated Date of Delivery: 06/12/21 Estimated Gestational Age (weeks): 39+3 Narrative: Jaziel James Cherry is a 25 year old admitted for ripening/induction at 39+3 due to labile BP and maternal discomfort. She has had 2 spontaneous vaginal births of infants weighing less than 7 lb but this infant is larger with the most recent estimated weight on 06/07/2021 of 8 lb 5 oz.. In addition her MARLENY is 24.7 cm. Indications Indication for induction OB: gestational HTN/pre-eclampsia History of Present care: good care Dating criteria: LMP confirmed by 1st trimester US Ultrasounds: normal 1st trimester US and normal mid trimester US Obstetrical complications: gestational hypertension (Non-severe) Medical complications: none Preadmission Labs Blood type: O (+) positive -: Antibody screen: unknown, GBS status: negative, HBsAG: negative, HIV: negative and RPR/VDLR: negative -: Chlamydia screen: not detected and Gonorrhea screen: not detected -: Rubella: immune and Varicella: immune HCAB: negative PAP: Normal Quad screen: Normal 1 hr GTT: 176 3 hr GTT: 1 hr (120), 2 hr (101) and 3 hr (109) Fasting blood glucose: 78 Prior (ies) History: x 2 Evaluation Evaluation Baseline heart rate: 140 Variability: Moderate (11-25) monitor accelerations: Present Monitor Decelerations: Absent Category of Tracing: Reactive Status: Category l Dilation (cm): 2 Effacement (%): 75 Dilation: 1-2 cm Effacement: 60-70% station: -4 Position of cervix: mid Consistency: soft Shaw [facility]: 6 [facility] Medical History Anxiety (~11/2019) Elevated blood pressure reading in office with white coat syndrome, without diagnosis of hypertension (~2015) Gastroesophageal reflux disease (~11/2019) Generalized anxiety disorder with panic attacks (~02/2020) anxiety (~2015) Systolic murmur (~01/2020) UTI (urinary tract infection) (~02/2020) Surgical History History of removal of skin mole Family History Father Hyperlipidemia Mother Hyperlipidemia Hypertension Grandmother Cancer Grandfather Cancer Grandmother No problems noted. Grandfather No problems noted. Social History marital status: number of children: 2 household members: spouse, family ([id number], and her brother. ) and children lives independently: Yes caregiver/support person: No housing: house (3 level [facility]. 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 ) current occupational exposures/hazards: No kimberley/spiritism: Sabianist special kimberley needs: No seatbelt use: always helmet use: Yes working smoke detector in home: Yes fire extinguisher in home: Yes carbon monox detector in home: Yes firearms in home: No do you feel safe at home: Yes Smoking Status: Never smoker second hand exposure: No alcohol intake: never substance use type: does not use during the past year weight has: remained stable well-balanced diet: daily or most days daily servings fruits/ve-4 (2 per day now, as she is nauseous. Usually more vegetables.) caffeine: No Type(s) of exercise: walking and normal ROM and activity frequency: daily duration: 30-45 minutes/day Meds Home Medications and Allergies Home Medications Medication Instructions Recorded Confirmed Type prenat.vits,keli,zmw-yhzd-cufmq 1 tab PO DAILY 11/04/20 06/07/21 History Allergies Allergy/AdvReac Type Severity Reaction Status Date / Time No Known Drug Allergies Allergy Verified 06/07/21 08:17 Review of Systems Review of Systems Narrative: Problem-specific ROS positives included in HPI OB Exam HENMT Head: normal to inspection, normocephalic and atraumatic Eyes General: appearance normal, both eyes and all related structures Resp Effort & Inspection: normal respiratory effort and able to speak in complete sentences Auscultation: clear to auscultation bilaterally Cardio Rhythm: regular rhythm Heart Sounds: S1 normal, S2 normal and no murmurs Extremities Lower extremity: Yes normal to inspection Uterus Location (Fundal Height): 38 Presentation: vertex Estimated Weight (lbs): 8 Objective Labs Result Diagrams: 06/08/21 08:30 Assessment and Plan Assessment and Plan Assessment and Plan narrative: ASSESSMENT 1. Intrauterine gestation, Reyna, vertex, 39+ 3 weeks gestation 2. Gestational hypertension, non-severe 3. Maternal fatigue and discomfort PLAN 1. Admit for cervical ripening and induction 2. See admission orders
[2021-06-08 08:17] LABS: COVID19 -Nasal RAPID Negative (Negative)
[2021-06-08 08:30] VITALS: BP 131/75
[2021-06-08 08:50] LABS: Add Manual Diff / Slide Review NO; Basophils Absolute Auto 100 /uL (0-100); Basophils Percent Auto 0.7 % (0-2); Eosinophils Absolute Auto 0 /uL (0-450); Eosinophils Percent Auto 0.3 % (2-4); Hematocrit 34.4 % (36-46); Hemoglobin 11.2 g/dL (12.0-16.0); Lymphocytes Absolute Auto 1600 /uL (1100-4500); Lymphocytes Percent Auto 23.3 % (25-40); Mean Corpuscular HGB Conc 32.5 % (30-36); Mean Corpuscular Hemoglobin 23.2 PG (26-34); Mean Corpuscular Volume 71.5 fL (80-100); Monocytes Absolute Auto 400 /uL (0-900); Monocytes Percent Auto 5.5 % (3-14); Neutrophils Absolute Auto 5000 /uL (1500-7000); Neutrophils Percent Auto 70.2 % (50-75); Platelet Count 244 X10^3/uL (150-400); Red Blood Cell Count 4.81 X10^6/uL (4.0-5.2); Red Cell Distribution Width 15.5 % (11.6-14.8); White Blood Cell Count 7.1 X10^3/uL (4.5-11.0)
[2021-06-08] MEDS: LACTATED RINGERS 1,000 ML 100 ML IV ×2 (09:25→15:23)
[2021-06-08] MEDS: OXYTOCIN PREMIX 30 UNIT/500 ML PLAST..BAG 200 UNIT IV (09:25)
--- NOTE | 2021-06-08 12:38 | PM.OBPNLAB ---
Date/Time Date Patient Seen: 06/08/21 Time Patient Seen: 12:38 Pain Control Pain control: tolerating well Pelvic Exam Dilation (cm): 3 Effacement (%): 80 station: 0 Amniotic membrane status: Intact Contractions Contractions on admission: none Monitor mode: External Pitocin rate (mU/min): 7 Contraction frequency (min): 4 Contraction duration (min): 1 Contraction pattern: Irregular Contraction phase: Resting Contraction intensity: Moderate Status status: Category l Heart Rate Baseline: 145 Monitor Accelerations: Present Monitor Decelerations: Absent Monitor Variability: Moderate Assessment and Plan Assessment: induction ongoing Plan: continuous present management
[2021-06-08] MEDS: fentaNYL 250 MCG/5 ML INJ (14:57)
[2021-06-08] MEDS: FENT 2MCG/ML BUPIV 0.125% EPI 200 MCG/100 ML PLAST..BAG 12 MCG EPIDURAL (14:57)
--- NOTE | 2021-06-08 15:19 | P.PCN_ITS ---
Regional Block Pre-procedure Procedure: Continuous Lumbar Epidural for L&D Attending OB provider: Meño Bowens PMH/ROS narrative: Hx: No personal or family history of anesthesia problems. PSH/Anesthesia history narrative: previous epidural without issue Exam narrative: MP4, RRR, CTAB ASA Class: III Labs: Hct 34.4 % (36-46) L 06/08/21 08:30 Plt Count 244 X10^3/uL (150-400) 06/08/21 08:30 Medications: Current Medications Generic Name Dose Route Start Last Admin Trade Name Freq PRN Reason Stop Dose Admin Calcium Carbonate 1,000 mg 06/08/21 07:22 Calcium Carbonate 500 Mg Tab PO Q2HR PRN Dyspepsia Carboprost Tromethamine 250 mcg 06/08/21 07:22 Carboprost 250 Mcg/Ml Ampul IM Q90M PRN Bleeding Fentanyl 100 mcg 06/08/21 07:22 Fentanyl 100 Mcg/2 Ml Inj IV Q1H PRN Pain, Severe (7-10) Lactated Ringer's 1,000 mls @ 100 mls/hr 06/08/21 07:30 06/08/21 09:25 Lactated Ringers IV 100 mls/hr CONT GARETH Administration Oxytocin/Lactated Ringer's 30 unit in 500 mls @ 200 mls/hr 06/08/21 07:22 06/08/21 09:25 Oxytocin Premix IV 200 mls/hr CONT PRN Administration Bleeding Protocol Tranexamic Acid 1,000 mg/ 100 mls @ 200 mls/hr 06/08/21 07:22 Sodium Chloride IV NOW PRN Bleeding Methylergonovine Maleate 0.2 mg 06/08/21 07:22 Methylergonovine 0.2 Mg/Ml Vial IM NOW PRN Bleeding Methylergonovine Maleate 0.2 mg 06/08/21 07:22 Methylergonovine 0.2 Mg Tablet PO Q6HR PRN Heavy Bleeding Misoprostol 1,000 mcg 06/08/21 07:22 Misoprostol 200 Mcg Tablet ND NOW PRN Bleeding Misoprostol 800 mcg 06/08/21 07:22 Misoprostol 200 Mcg Tablet ND NOW PRN Bleeding Misoprostol 400 mcg 06/08/21 07:22 Misoprostol 200 Mcg Tablet SL NOW PRN Bleeding Misoprostol 50 mcg 06/08/21 09:00 Misoprostol 25 Mcg Tablet PO QID [facility] Naloxone HCl 0.2 mg 06/08/21 07:22 Naloxone 0.4 Mg/Ml Vial IV Q2MIN PRN Opiate Reversal Ondansetron HCl 4 mg 06/08/21 07:22 Ondansetron 4 Mg/2 Ml Inj IV Q4HR PRN Nausea And Vomiting Oxytocin 10 unit 06/08/21 07:22 Oxytocin 10 Unit/Ml Vial IM NOW PRN Bleeding Allergies: Allergies Allergy/AdvReac Type Severity Reaction Status Date / Time No Known Drug Allergies Allergy Verified 06/07/21 08:17 Procedure Insertion date: 06/08/21 Insertion time: 15:06 Prep/Local: betadine x3 (chloroprep) and 1% lidocaine Interspace: L2-3 Patient position: sitting Needle: 18 gauge [employer] (with 27G pencil point needle-through needle for IT dose) Loss of resistance with: saline (with air bubble) AMBER at (cm): 7 Catheter placed at SKIN (cm): 12 Catheter in SPACE (cm): 5 Insertion: Yes CSF, No Blood, No Paresthesia with insertion, No Paresthesia with injection and No Test dose reaction Initial Medications TEST DOSE time: 15:07 TEST DOSE: 1.5% lidocaine with epinephrine 1:200k (mL): 5 (3mL initial test dose, 2mL as part of first bolus) BOLUS DOSE time: 15:08 BOLUS DOSE (mL): 2 BOLUS DOSE med: other (10mcg fentanyl intrathecally, 90mcg fentanyl via epidural catheter) Infusion INFUSION: 0.0625% bupivacaine and with fentanyl 2 mcg/mL Initial rate (mL/hr): 12 (with bolus of 5mL Q15min lockout) Post-procedure Anesthesia time START: 14:49 Anesthesia time END: 15:56 Post-procedure Anesthesia Assessment: No Anesthesia complications
--- NOTE | 2021-06-08 16:12 | P.PCNOB_ITS ---
Events: Polyhydramnios Labor & Delivery Delivery date: 06/08/21 Intrapartal Events: None Cervical ripening method: none Induction method: per pitocin protocol Delivery monitor: external FHT and external uterine Route of delivery: Episiotomy description: None L&D Laceration Description: Periurethral - 1st Degree and Perineal - 1st Degree Delivery repair: other (No repair required) Estimated blood loss (mL): 125 Anesthesia Type: Epidural Complications: None Narrative: Following a brief 2nd stage during which the patient pushed very effectively, she delivered spontaneously over an intact perineum a viable male with Apgars 8/9 and weight gms (8 lbs. 1.5 oz.). A loose single loop of cord around the neck was noted and reduced after delivery of the . No shoulder dystocia was encountered. Skin to skin contact was initiated immediately following delivery and delayed cord clamping for 60 seconds was performed. The umbilical cord was then doubly clamped and cut with a sample of blood obtained for routine studies. The placenta was then delivered with gentle cord traction and suprapubic pressure. The cord had 3 vessels with an eccentric insertion and the placenta was intact. The perineum and vaginal introitus was inspected and there were very superficial 1st degree abrasions at the midline of the introitus and a left periurethral abrasion. No repair of either abrasion was required. The delivery process was completed with an estimated blood loss of approximately 150 cc with Mother and baby both doing very well at the completion of the delivery. Rescue Baby 1: gender: Male Presentation: vertex Position: Left Occiput Anterior Cord Vessel Description: 3 Vessels, Nuchal Cord and Loose score (1 min): 8 score (5 min): 9 weight: 9 lb 0.976 oz
[2021-06-08] MEDS: LANOLIN OINT 7 GM 1 APPLIC TOP (20:20)
[2021-06-09 07:31] LABS: Add Manual Diff / Slide Review NO; Basophils Absolute Auto 0 /uL (0-100); Basophils Percent Auto 0.3 % (0-2); Eosinophils Absolute Auto 100 /uL (0-450); Eosinophils Percent Auto 0.9 % (2-4); Hematocrit 33.4 % (36-46); Hemoglobin 10.6 g/dL (12.0-16.0); Lymphocytes Absolute Auto 1700 /uL (1100-4500); Lymphocytes Percent Auto 19.4 % (25-40); Mean Corpuscular HGB Conc 31.8 % (30-36); Mean Corpuscular Hemoglobin 23.1 PG (26-34); Mean Corpuscular Volume 72.4 fL (80-100); Monocytes Absolute Auto 700 /uL (0-900); Monocytes Percent Auto 7.8 % (3-14); Neutrophils Absolute Auto 6100 /uL (1500-7000); Neutrophils Percent Auto 71.6 % (50-75); Platelet Count 199 X10^3/uL (150-400); Red Blood Cell Count 4.61 X10^6/uL (4.0-5.2); Red Cell Distribution Width 15.3 % (11.6-14.8); White Blood Cell Count 8.6 X10^3/uL (4.5-11.0)
[2021-06-09] MEDS: PRENATAL VIT,CALC/IRON/FOLIC 1 TABLET 1 TAB PO (08:49)
[2021-06-09] MEDS: IBUPROFEN 600 MG TABLET PO (08:49)
[2021-06-09] MEDS: DOCUSATE 100 MG CAPSULE PO (08:49)
--- NOTE | 2021-06-09 13:42 | P.DS_ITS ---
Discharge Providers Provider Date of admission: 06/08/21 07:09 Discharge Date: 06/09/21 Primary care physician: Ji Chou DO Consults: 06/09/21 16:15 Consult to University Administrator Routine Comment: Discharge provider: Meño Bowens MD Summary Hospital Course Diagnoses: Intrauterine gestation, 39+ 4 weeks gestational age, Reyna, delivered Gestational hypertension Hospital Course: Jaziel Cherry is a 25 year old admitted 06/08/2021 for ripening/induction at 39+3 due to labile BP and maternal discomfort.? She has had 2 spontaneous vaginal births of infants weighing less than 7 lb but this infant is larger with the most recent estimated weight on 06/07/2021 of 8 lb 5 oz..? After ripening with oral Cytotec the patient progressed in labor with Pitocin augmentation and delivered spontaneously on the afternoon of 06/08/2020 a viable male infant Apgars of 8/9 and a weight of 8 lb 1.5 oz. the patient sustained very superficial perineal and periurethral abrasions which did not require repair. Following delivery the patient has done extremely well with prompt return of bowel and bladder function, she is ambulating independently, tolerating regular diet, and her pain is well controlled with oral medication. She will be discharged at this time to home with medications to include OTC Tylenol and ibuprofen. Patient will use OTC stool softeners as needed for constipation. Follow-up will be in 2 weeks at which time we will discuss contraceptive options. Peripartum Data Delivery Method: Natural Vaginal Laceration Description: Periurethral - 1st Degree and Perineal - 1st Degree Episiotomy description: None Procedures: Continuous lumbar epidural placement Spontaneous vaginal step trickle delivery complications: none 1: Gender: Male Disposition of : home Status at Discharge Cognitive/behavioral status at discharge: oriented Functional status at discharge: independent ambulation Overall status at discharge: patient is progressing back to baseline Time Spent with Patient Time attestation: Total time spent providing and/or coordinating discharge services: Time spent: Less than 30 minutes Objective Labs Result Diagrams: 06/09/21 06:00 Labs: Laboratory Results - last 24 hr 06/09/21 06:00 WBC 8.6 RBC 4.61 Hgb 10.6 L Hct 33.4 L MCV 72.4 L MCH 23.1 L MCHC 31.8 RDW 15.3 H Plt Count 199 Neut % (Auto) 71.6 Lymph % (Auto) 19.4 L Grundy % (Auto) 7.8 Eos % (Auto) 0.9 L Baso % (Auto) 0.3 Neut # (Auto) 6100 Lymph # (Auto) 1700 [place]undy # (Auto) 700 Eos # (Auto) 100 Baso # (Auto) 0 Exam Const General: cooperative, comfortable and well developed Nutritional Appearance: average body habitus Orientation: alert and oriented x3 HENMT Head: normal to inspection, atraumatic and abrasion Face and sinus: face symmetric Eyes General: appearance normal, both eyes and all related structures Conjunctivae: conjunctivae normal Sclera: sclerae normal EOM: EOM intact bilaterally Neck Neck: normal visual inspection Resp Effort & Inspection: normal respiratory effort and able to speak in complete sentences GI Inspection: normal to inspection Palpation: soft, no hepatosplenomegaly and mass (Firm, minimally tender fundus, U -4) Skin General: no rashes or lesions noted Extrem General: normal to inspection and no calf tenderness Psych Appearance: grossly normal Mental Status: mental status grossly normal Speech and Movement: speech and movement normal Mood: congruent mood Affect: normal affect Attitude: cooperative Thought Process: normal Thought Content: normal Judgment: judgment good Discharge Plan Discharge Plan Patient Disposition: Home Provider Discharge Comment: Please review the written instructions provided when you were discharged from the hospital. Your follow-up appointment with Dr. Kraft will be in 6 weeks. If you have any issues, problems, or concerns before then, please contact the office by phone or via the patient portal. Discharge orders & Medications Prescriptions: Continued prenat.vits,keli,[id number] Tablet 1 tab PO DAILY 0RF Follow up/Referrals: Ji Chou DO [Primary Care Provider] - (Appointment with on July at 1:30pm .) Discharge Health Status Multidrug resistant organism: No MDRO Diet/Activity/Treatments Diet: Diet as Tolerated Activity: As tolerated Other treatments: Tylenol and/or ibuprofen for pain relief; OTC stool softeners for constipation Skin/Wound/Dressing Care Report to your healthcare provider any signs of infection, such as:: chills, fever, increased pain, unusual drainage and unusual redness Dressing: N/A Visit Report/Discharge Packet Instructions: DI for Labor and Delivery, Vaginal , DI for and Nipple Soreness Discharge Data Primary Care Provider: Ji Chou
[2021-06-09 14:15] VITALS: BP 130/77; PULSE 60; RESP 16; TEMP 36.9
== END 2021-06-09 16:00 | disposition home or self-care (01) | DRG 807 ==
PROVIDERS: Specialist; Admitting Provider Obstetrics & Gynecology; PCP Family Medicine; Referring Provider Obstetrics & Gynecology; Visit Provider Obstetrics & Gynecology
DX: O14.04 Mild to moderate pre-eclampsia, complicating childbirth (principal); Z37.0 Single live birth; Z3A.39 39 weeks gestation of pregnancy; O26.813 Pregnancy related exhaustion and fatigue, third trimester; O69.81X0 Labor and delivery complicated by cord around neck, without compression, not applicable or unspecified; O40.3XX0 Polyhydramnios, third trimester, not applicable or unspecified; Z20.822 Contact with and (suspected) exposure to COVID-19
CPT/HCPCS: 01967; 36415; 59050; 59400; 59409; 85025; 86850; 86900; 86901; 87635; C9803; G0379; J2590; J3010